=== PATIENT | female | born 1945 | race Caucasian/White ===

== ENCOUNTER 2021-04-05 17:33 | Emergency (ER) | payer OTHER ==
[~2021-04-05] VITALS: Ht 170.2 cm; Wt 68.0 kg
[2021-04-05] MEDS ORDERED: DEPAKOTE ER500 MG PO (18:17)
[2021-04-05] MEDS ORDERED: LYRICA20 MG/1 ML (18:18)
== END 2021-04-05 21:43 | disposition home or self-care (01) ==
LOC: ER 17:33
DX: R53.1 Weakness (principal); Z11.52 Encounter for screening for COVID-19